=== PATIENT | female | born 2000 | race African-American/Black ===

== ENCOUNTER 2024-01-20 21:32 | Emergency (ER) | payer OTHER, SELFPAY ==
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
[2024-01-20 21:35] VITALS: BP 112/85; PULSE 85; RESP 20; TEMP 37.4; O2SAT 99; BMI 17.7
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
[2024-01-21 00:24] VITALS: BP 112/85; PULSE 85; RESP 20; TEMP 37.4; O2SAT 99
== END 2024-01-21 00:25 | disposition left against medical advice (07) ==
PROVIDERS: Emergency Provider Emergency Medicine
DX: S09.90XA Unspecified injury of head, initial encounter (principal); V43.52XA Car driver injured in collision with other type car in traffic accident, initial encounter; W22.10XA Striking against or struck by unspecified automobile airbag, initial encounter; Y92.410 Unspecified street and highway as the place of occurrence of the external cause; Y93.9 Activity, unspecified; Y99.9 Unspecified external cause status; R51.9 Headache, unspecified; M54.2 Cervicalgia
CPT/HCPCS: 70450; 72125; 99282; 99284

== ENCOUNTER 2024-05-26 07:26 | Outpatient (REF) | payer OTHER, SELFPAY ==
--- OUTSIDE RECORDS SUMMARY | 2024-05-26 07:29 | XMS_ITS | Encounter Summary ---
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
--- OUTSIDE RECORDS SUMMARY | 2024-05-26 07:29 | XMS_ITS | Encounter Summary ---
Author Organization [facility] Address [address] [place] [address] Care Team Providers Care Band Teacher Name Role Phone Rosa Isela Luis MD Primary Care Provider Herve toth Encounter Details Date Type Department Care Team Description 03/08/2015 [facility] Form Medical Records [address] [place] [id number] Abstract, Provider Social History Tobacco Use Types Packs/Day Years Used Date Smoking Tobacco: Never Alcohol Use Standard Drinks/Week Comments Not Asked 0 (1 standard drink = 0.6 oz pur e alcohol) Sex Assigned at Date Recorded Not on file documented as of this encounter Plan of Treatment Not on file documented as of this encounter Visit Diagnoses Not on filedocumented in this encounter Care Teams Band Teacher Relationship Specialty Start Date End Date Rosa Isela Luis MD PCP - General 04/06/09 documented as of this encounter
--- OUTSIDE RECORDS SUMMARY | 2024-05-26 07:29 | XMS_ITS | Encounter Summary ---
Author Organization [facility] Address [address] [place] [address] Care Team Providers Care Mattress Stuffer Name Role Phone Rosa Isela Luis MD Primary Care Provider Herve toth Encounter Details Date Type Department Care Team Description 03/13/2010 Transfer Records Medical Records [address] [place] [id number] Abstract, Provider Social History Tobacco Use Types [...] on filedocumented in this encounter Care Teams Mattress Stuffer Relationship Specialty Start Date End Date Rosa Isela Luis MD PCP - General 04/06/09 documented as of this encounter
== END 2024-05-26 07:27 | disposition home or self-care (01) ==
LOC: HO.HOSX 07:26
PROVIDERS: Visit Provider Physician Assistant
DX: Z13.89 Encounter for screening for other disorder (principal)